=== PATIENT | female | born 2000 | race African-American/Black ===

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

== ENCOUNTER 2018-04-03 17:42 | Emergency (ER) | payer OTHER ==
[~2018-04-03] VITALS: Ht 157.5 cm; Wt 79.4 kg
[~2018-04-03 17:42] MED LIST changes: +CYCL5TAB PO; +HYDR-3164 PO
[2018-04-03 18:11] VITALS: BP 118/65
[2018-04-03 18:17] LABS: BILIRUBIN,URINE NEGATIVE (NEG); CLARITY,URINE CLEAR; COLOR,URINE AMBER; NITRITE,URINE NEGATIVE (NEG); PROTEIN,URINE 30 mg/dL (NEG-TRACE)
[2018-04-03 18:23] LABS: BACTERIA,URINE MODERATE /HPF (0-FEW); RBC,URINE OCC /HPF (0-2); SQUAMOUS EPITHELIAL CELL,UR MANY /LPF; WBC,URINE 20-40 /HPF (0-4)
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
[2018-04-03] MEDS ORDERED: CEPH-264 PO (19:12)
== END 2018-04-03 19:18 | disposition home or self-care (01) ==
LOC: ER 17:42
DX: O99.341 Other mental disorders complicating pregnancy, first trimester (principal); F41.9 Anxiety disorder, unspecified; O23.41 Unspecified infection of urinary tract in pregnancy, first trimester; R10.9 Unspecified abdominal pain; Z3A.12 12 weeks gestation of pregnancy
CPT/HCPCS: 81001; 81025; 87086; 99283

== ENCOUNTER 2018-08-07 13:44 | Observation (INO) | payer OTHER ==
[~2018-08-07 13:44] MED LIST changes: +CEPH-264 PO
[2018-08-07] MEDS ORDERED: IV RINGERS,LACTATED 1000ML 1,000 ML IV SCH (13:55)
[2018-08-07 14:40] LABS: BILIRUBIN,URINE NEGATIVE (NEG); CLARITY,URINE CLEAR; COLOR,URINE YELLOW; NITRITE,URINE NEGATIVE (NEG); PH,URINE 6.5; PROTEIN,URINE NEGATIVE (NEG-TRACE)
[2018-08-07 14:52] LABS: BACTERIA,URINE FEW /HPF (0-FEW); RBC,URINE 0 /HPF (0-2)
[2018-08-07 14:53] LABS: SQUAMOUS EPITHELIAL CELL,UR MANY /LPF
== END 2018-08-07 16:02 | disposition home or self-care (01) ==
LOC: 3 SO LND 13:44
PROVIDERS: ADMIT Specialist; ATTEND Specialist
DX: O26.893 Other specified pregnancy related conditions, third trimester (principal); R10.33 Periumbilical pain; K42.9 Umbilical hernia without obstruction or gangrene; Z3A.30 30 weeks gestation of pregnancy
CPT/HCPCS: 81001; 87086; G0378; G0379

== ENCOUNTER 2018-09-03 14:36 | Emergency (ER) | payer OTHER ==
[~2018-09-03] VITALS: Ht 165.1 cm; Wt 81.6 kg
[2018-09-03 14:43] VITALS: BP 108/55
--- NOTE | 2018-09-03 15:22 | PHYS DOC ---
Past Medical History Past Medical History: No Pertinent History Past Surgical History: No Surgical History Alcohol Use: None Drug Use: None Adult General Chief Complaint Chief Complaint: SORE THROAT HPI HPI Patient is a 18 year old female who presents with complaining of sore throat. Patient is 34 weeks and complaining of sore throat for the last 2 days as a constant pain with nasal congestion without fever and chills, earache, cough and congestion, abdominal pain, vaginal discharge, sick contact. Review of Systems Review of Systems Constitutional: Denies fever or chills [] Eyes: Denies change in visual acuity, redness, or eye pain [] HENT: Denies nasal congestion, reports sore throat [] Respiratory: Denies cough or shortness of breath [] Cardiovascular: No additional information not addressed in HPI [] GI: Denies abdominal pain, nausea, vomiting, bloody stools or diarrhea [] : Denies dysuria or hematuria [] Musculoskeletal: Denies back pain or joint pain [] Integument: Denies rash or skin lesions [] Neurologic: Denies headache, focal weakness or sensory changes [] Endocrine: Denies polyuria or polydipsia [] All other systems were reviewed and found to be within normal limits, except as documented in this note. Allergies Allergies Allergies Coded Allergies Type Severity Reaction Last Updated Verified No Known Drug Allergies 04/07/14 No Physical Exam Physical Exam Constitutional: Well developed, well nourished, no acute distress, non-toxic karo earance. [] HENT: Normocephalic, atraumatic, bilateral external ears normal, oropharynx moist, no oral exudates, nose normal. [] Eyes: PERRLA, EOMI, conjunctiva normal, no discharge. [] Neck: Normal range of motion, no tenderness, supple, no stridor. [] Cardiovascular:Heart rate regular rhythm, no murmur [] Lungs & Thorax: Bilateral breath sounds clear to auscultation [] Abdomen: Bowel sounds normal, soft, no tenderness, no masses, no pulsatile masses, gravid abdomen. [] Skin: Warm, dry, no erythema, no rash. [] Back: No tenderness, no CVA tenderness. [] Extremities: No tenderness, no cyanosis, no clubbing, ROM intact, no edema. [] Neurologic: Alert and oriented X 3, normal motor function, normal sensory function, no focal deficits noted. [] Psychologic: Affect normal, judgement normal, mood normal. [] Current Patient Data Vital Signs Vital Signs Date Time Temp Pulse Resp B/P (MAP) Pulse Ox O2 Delivery O2 Flow Rate FiO2 09/03/18 14:43 98.5 106 16 108/55 (72) 98 Room Air 98.5 EKG EKG [] Radiology/Procedures Radiology/Procedures [] Course & Med Decision Making Course & Med Decision Making Pertinent Labs reviewed. (See chart for details) I've spoken with the patient and/or caregivers. I've explained the patient's condition, diagnosis and treatment plan based on information available to me at this time. I've answered the patient's and/or caregivers questions and addressed any concerns. The patient and/or caregivers have a good understanding the patient's diagnosis, condition and treatment plan as can be expected at this point. Vital signs have been stabilized. The patient's condition is stable for discharge from the emergency department. The patient will pursue further outpatient evaluation with her primary care provider or other designated consulting physician as outlined in the discharge instructions. Patient and/or caregivers are agreeable to this plan of care and follow-up instructions have been explained in detail. The patient and/or caregivers have received these instructions in written format and expressed understanding of these discharge instructions. The patient and her caregivers are aware that if any significant change in condition or worsening of symptoms should prompt him to immediately return to this of the closest emergency department. If an emergent department is not readily available I would encourage him to call 911. Dragon Disclaimer Dragon Disclaimer This electronic medical record was generated, in whole or in part, using a voice recognition dictation system. Departure Departure Impression: Primary Impression: Viral pharyngitis Additional Impression: Currently Disposition: 01 HOME, SELF-CARE Condition: STABLE Referrals: Cindy RAMOS MD (PCP) Patient Instructions: Viral Pharyngitis Additional Instructions: Drink plenty of liquids Follow-up with your primary care physician in 3-5 days Return to ER if not getting better Take [id number] Tylenol as needed for pain Problem Qualifiers Additional Impression: Currently Weeks of gestation: 34 weeks Qualified Codes: Z3A.34 - 34 weeks gestation of GRICELDA VIDAL MD Sep 03, 2018 15:22
== END 2018-09-03 15:41 | disposition home or self-care (01) ==
LOC: ER 14:36
DX: O26.893 Other specified pregnancy related conditions, third trimester (principal); J02.8 Acute pharyngitis due to other specified organisms; B97.89 Other viral agents as the cause of diseases classified elsewhere; Z3A.34 34 weeks gestation of pregnancy
CPT/HCPCS: 87070; 87880; 99283

== ENCOUNTER 2018-11-20 07:14 | Day surgery (SDC) | payer OTHER ==
--- NOTE | 2018-11-20 06:35 | HP ---
ADMIT DATE: HISTORY OF PRESENT ILLNESS: The patient is referred because of symptomatic umbilical hernia. The history is that apparently she had no umbilical hernia until about a year and a half ago or 2 years ago when she got with her first child. She had been delivered and now has delivered about 2 weeks ago another child and has this umbilical hernia which had been painful and tender during the pregnancies. She therefore warrants to have it repaired. She has had normal childhood diseases, has no allergies, and has had no surgery. She has had no real GI symptoms except for the abdominal wall pain at the hernia site. SOCIAL HISTORY: Shows that she does not smoke, drink, or use illicit drugs and never has. FAMILY HISTORY: Noncontributory. REVIEW OF SYSTEMS: Basically negative. Now, as she has delivered, she does have some tenderness at the umbilicus, but it is better. The hernia is present. PHYSICAL EXAMINATION: GENERAL: Shows an alert female, in no acute distress. HEAD, EARS, EYES, NOSE, AND THROAT: Grossly normal. CHEST: Clear bilaterally to auscultation. HEART: Had no murmurs, heaves, friction rubs, or thrills and the rate was 68 beats per minute estimated and regular. BREASTS: Examination of the breast was not done. ABDOMEN: Soft, is by about 2-3 weeks. On inspection, lying down and standing up, she has an obvious umbilical hernia and there appears to be another small defect, maybe just above the umbilicus. This would be a ventral hernia, not an umbilical hernia also. In the abdomen, there was no tenderness, no guarding, no organomegaly, no masses were noted other than the hernia. It was at this point not incarcerated. PELVIC: Examination was not done. IMPRESSION: 1. Anterior abdominal wall hernia. 2. Status by 2 weeks. JORDAN SOUSA MD DR: GRACIELA/zhanna JOB#: [id number] / [id number]
[~2018-11-20 07:14] MED LIST changes: +BUPIVACAINE-EPI 0.5%-1:200000 MPF 30 ML VIAL. INJ ONE; +HYDROmorphone 2 MG/ML VIAL IV PRN; +IV RINGERS,LACTATED 1000ML 1,000 ML IV SCH; +LIDOCAINE 1% PF 2 ML VIAL. ID PRN; +MORPHINE SULFATE 2 MG/ML VIAL. IV PRN; +NAPR-514 PO; +ONDANSETRON PF 4 MG/2 ML VIAL. IV PRN; +PNV1TABL25 PO; +PROCHLORPERAZINE 10 MG/2 ML VIAL. IV PRN; +fentaNYL PF VIAL 100 MCG/2 ML VIAL IV PRN
[2018-11-20 08:07] LABS: BASO # 0.1 x10^3/uL (0.0-0.2); BASO % 1 % (0-3); EOS # 0.1 x10^3/uL (0.0-0.7); EOS % 1 % (0-3); HEMATOCRIT 37.4 % (36.0-47.0); HEMOGLOBIN 12.5 g/dL (12.0-15.5); LYMPH # 3.3 x10^3/uL (1.0-4.8); LYMPH % 36 % (24-48); MEAN CORPUSCULAR HEMOGLOBIN 30 pg (25-35); MEAN CORPUSCULAR HGB CONC 33 g/dL (31-37); MEAN CORPUSCULAR VOLUME 91 fL (79-100); MONO # 0.6 x10^3/uL (0.0-1.1); MONO % 7 % (0-9); NEUT % 55 % (31-73); PLATELET COUNT 203 x10^3/uL (140-400); RED BLOOD COUNT 4.11 x10^6/uL (3.50-5.40); RED CELL DISTRIBUTION WIDTH 14.1 % (11.5-14.5); WHITE BLOOD COUNT 9.1 x10^3/uL (4.0-11.0)
[2018-11-20 08:17] LABS: CALCIUM 9.2 mg/dL (8.5-10.1); CREATININE 0.8 mg/dL (0.6-1.0); GFR 110.7; POTASSIUM 3.8 mmol/L (3.5-5.1)
--- NOTE | 2018-11-20 08:20 | PDOC ---
SURGICAL PROGRESS NOTE Subjective No change in dictated History and Physical. Vital Signs Vital Signs Date Time Temp Pulse Resp B/P (MAP) Pulse Ox O2 Delivery O2 Flow Rate FiO2 11/20/18 07:31 98.0 71 20 111/72 98 Room Air 98.0 Labs Laboratory Tests Test 11/20/18 07:18 Bedside Urine HCG, Qualitative Hcg negative (Negative) Laboratory Tests Test 11/20/18 07:18 Bedside Urine HCG, Qualitative Hcg negative (Negative) JORDAN SUOSA MD Nov 20, 2018 08:20
--- NOTE | 2018-11-20 08:27 | PDOC ---
SURGICAL PROGRESS NOTE Subjective OP NOTE: Surgeon.......................Sousa Pre Op diagnosis..........Ventral hernia Post Op diagnosis........Ventral hernia Anesthesia...................general Procedure....................repair Ventral hernia Drains..........................none Fluids...........................see anesthesia sheet Blood loss.....................10cc Condition.......................satisfactory Vital Signs Vital Signs Date Time Temp Pulse Resp B/P (MAP) Pulse Ox O2 Delivery O2 Flow Rate FiO2 11/20/18 07:31 98.0 71 20 111/72 98 Room Air 98.0 Labs Laboratory Tests Test 11/20/18 07:18 Bedside Urine HCG, Qualitative Hcg negative (Negative) Laboratory Tests Test 11/20/18 07:18 Bedside Urine HCG, Qualitative Hcg negative (Negative) JORDAN SOUSA MD Nov 20, 2018 08:27
[2018-11-20 08:29] LABS: PROTHROMBIN TIME PATIENT 13.4 SEC (11.7-14.0)
[2018-11-20] MEDS ORDERED: PROPOFOL 20 ML IV ONE (08:48)
[2018-11-20] MEDS ORDERED: LIDOCAINE 2% PF 5 ML VIAL. ONE (08:48)
[2018-11-20] MEDS ORDERED: ROCURONIUM 50 MG/5 ML VIAL. ONE (08:49)
[2018-11-20] MEDS ORDERED: ONDANSETRON PF 4 MG/2 ML VIAL. ONE (08:50)
[2018-11-20] MEDS ORDERED: MIDAZOLAM HCL/PF 2 MG/2 ML VIAL. ONE (08:50)
[2018-11-20] MEDS ORDERED: DEXAMETHASONE SOD PHOS 4 MG/ML VIAL ONE (08:50)
[2018-11-20] MEDS ORDERED: fentaNYL PF VIAL 100 MCG/2 ML VIAL ONE ×2 (08:51→09:29)
[2018-11-20] MEDS ORDERED: ceFAZolin SODIUM 1 GM VIAL ONE (09:18)
[2018-11-20] MEDS ORDERED: FAMOTIDINE 20 MG/2 ML VIAL ONE (09:27)
[2018-11-20] MEDS ORDERED: SEVOFLURANE > 120 MINUTES. IH ONE (09:29)
[2018-11-20] MEDS ORDERED: NEOSTIGMINE METHYLSULFATE 5 MG/5 ML SYRINGE. ONE (10:00)
[2018-11-20] MEDS ORDERED: SEVOFLURANE 61 TO 120 MINUTES. IH ONE (10:20)
--- NOTE | 2018-11-20 11:08 | DISCH ---
DISCHARGE INSTRUCTIONS Condition on Discharge Condition on Discharge: Stable Activity After Discharge Activity Instructions for Disc: Activity as tolerated, Avoid exertion, Other, see below Other activity instructions: no strenuous activity Lifting Instructions after Dis: No heavy lifting, No pulling or pushing, Do not lift >10 pounds Exercise Instruction after Dis: Progress as tolerated Driving Instructions after Dis: No driving for 2 weeks Weight Bearing Status after Di: No restrictions Diet after Discharge Diet after Discharge: Clear Liquid, Regular Diet Texture: Regular Liquid Texture: Thin Liquid Swallowing Supervision: None needed Wound Incision Care Wound/Incision Care: Other, see below Other wound/incision instructi: May shower. Leave dressing on as long as possible...then sterile dressing Follow-Up Follow up with: [address] Sousa Treatment/Equipment after DC Adaptive Equipment Issued: None JORDAN SOUSA MD Nov 20, 2018 11:08
[2018-11-20] MEDS ORDERED: HYDR-2765 PO (12:11)
[2018-11-20 12:45] VITALS: BP 113/65
[2018-11-20] MEDS ORDERED: HYDROcodone/APAP 7.5/325MG 1 TAB TABLET PO ONE (12:45)
--- NOTE | 2018-11-21 01:01 | OP ---
DATE OF SURGERY: The patient developed an abdominal wall hernia during her first some years ago. She had another maybe not a year ago, but this past summer or spring and she had a hernia, which is not going away and causing her some difficulties. We discussed the possibility of using mesh. She is planning to be again and therefore she did not want mesh put in and I agree. I also contacted the detail person and he suggested not to put it in if she is going to be again. She did want the hernia fixed and also clearly understood that the hernia may well recur, especially if she gets again. SURGEON: Román Sousa MD. PREOPERATIVE DIAGNOSIS: Umbilical hernia. POSTOPERATIVE DIAGNOSIS: Ventral hernia, as the hernia appeared to be a little bit above the umbilicus. ANESTHESIA: General. PROCEDURE: Repair of abdominal wall hernia, ventral. TECHNIQUE: An incision was made in the supraumbilical area following the skin lines about an inch and half to 2 inches in length. We carried this down through the skin with a 15 blade and then developed a plane in the subcutaneous. We went around the umbilicus caudad and obviously noted that the hole was actually larger and not exactly on the umbilicus. We did separate the umbilicus from the underlying structures and the peritoneum was not entered during this procedure. As such, the fascial ring on the hernia could be seen. We simply used fingers and pushed away the material from the underside of the fascia, so that we could place sutures there safely. We in fact did pull up on either side with towel clips on the fascia and then pass after we were certain that all was away. We put four #1 Prolene sutures there. We buried the notch using 4-0 Vicryl and subcutaneous was irrigated with saline and then the deeper structures were approximated with interrupted 4-0 Vicryl. The skin was closed using the 5-0 subcuticular Vicryl. Sterile Tegaderm dressing was applied and the procedure was terminated. The blood loss was probably 10 mL. Fluids given can be obtained from the anesthesia sheet. There were no drains used. CONDITION OF THE PATIENT: Satisfactory as she has returned to the recovery room. ROMÁN SOUSA MD DR: GRACIELA/zhanna JOB#: [id number] / [id number]
== END 2018-11-20 13:27 | disposition home or self-care (01) ==
LOC: SURG 07:14
PROVIDERS: ATTEND Specialist
DX: K43.9 Ventral hernia without obstruction or gangrene (principal); Z79.01 Long term (current) use of anticoagulants
CPT/HCPCS: 36415; 49560; 80048; 81025; 85025; 85610; A7015; J0690; J1100; J2001; J2250; J2405; J2704; J2710; J3010; J3490

== ENCOUNTER 2020-09-22 18:50 | Emergency (ER) | payer BC, OTHER ==
[~2020-09-22] VITALS: Ht 162.6 cm; Wt 63.0 kg
[~2020-09-22 18:50] MED LIST changes: -BUPIVACAINE-EPI 0.5%-1:200000 MPF 30 ML VIAL. INJ ONE; +HYDR-2765 PO; -HYDROmorphone 2 MG/ML VIAL IV PRN; -IV RINGERS,LACTATED 1000ML 1,000 ML IV SCH; -LIDOCAINE 1% PF 2 ML VIAL. ID PRN; -MORPHINE SULFATE 2 MG/ML VIAL. IV PRN; -ONDANSETRON PF 4 MG/2 ML VIAL. IV PRN; -PROCHLORPERAZINE 10 MG/2 ML VIAL. IV PRN; -fentaNYL PF VIAL 100 MCG/2 ML VIAL IV PRN
--- NOTE | 2020-09-22 22:00 | PHYS DOC ---
Past Medical History Past Medical History: No Pertinent History Past Surgical History: No Surgical History Smoking Status: Never Smoker Alcohol Use: None Drug Use: None General Adult EDM: Chief Complaint: MUSCLE SPASM/CRAMP HPI: HPI: Patient is a 20 year old female with no significant medical history who pre sents to the ED today complaining of mild "contraction" pain to the left chest, symptoms have been going on for 2 to 3 weeks. Patient states symptoms are worse on palpation of her chest. She states symptoms are relieved on certain movements as well as moving her breast on the left side. Denies any fever, coughing, congestion. Denies any fever, denies any chance she is . Denies any family or personal history of cardiac events before the age of 50. Patient is also complaining of mild intermittent posterior neck pain, symptoms of been going on since June 2020. Patient states symptoms are worse on certain movements of the neck. Denies anything specifically relieving the pain. Describes the pain as sharp. Review of Systems: Review of Systems: Constitutional: Denies fever or chills. [] Eyes: Denies change in visual acuity. [] HENT: Denies nasal congestion or sore throat. [] Respiratory: Denies cough or shortness of breath. [] Cardiovascular: Reports left-sided chest pain GI: Denies abdominal pain, nausea, vomiting, bloody stools or diarrhea. [] : Denies dysuria. [] Musculoskeletal: Reports neck pain. Denies back pain Integument: Denies rash. [] Neurologic: Denies headache, focal weakness or sensory changes. [] Psychiatric: Denies depression or anxiety. [] Heart Score: C/O Chest Pain: N/A Risk Factors: Risk Factors: DM, Current or recent (<one month) smoker, HTN, HLP, family history of CAD, obesity. Risk Scores: Score 0 - 3: 2.5% MACE over next 6 weeks - Discharge Home Score 4 - 6: 20.3% MACE over next 6 weeks - Admit for Clinical Observation Score 7 - 10: 72.7% MACE over next 6 weeks - Early Invasive Strategies Current Medications: Current Medications Medications (Trade) Dose Ordered Sig/Shameka Start Time Stop Time Status Last Admin Dose Admin Aspirin (Cami Aspirin) 325 mg 1X ONCE 09/22/20 22:00 09/22/20 22:01 UNV Allergies: Allergies: Allergies Coded Allergies Type Severity Reaction Last Updated Verified No Known Drug Allergies 11/20/18 No Physical Exam: PE: Constitutional: Well developed, well nourished, no acute distress, non-toxic appearance. [] HENT: Normocephalic, atraumatic, bilateral external ears normal, oropharynx moist, no oral exudates, nose normal. [] Eyes: PERRLA, EOMI, conjunctiva normal, no discharge. [] Neck: Normal range of motion, no tenderness, supple, no stridor. [] Cardiovascular: Heart rate regular rhythm, no murmur. Reproducible tenderness to the left chest. Lungs & Thorax: Bilateral breath sounds clear to auscultation [] Abdomen: Bowel sounds normal, soft, no tenderness, no masses, no pulsatile masses. [] Skin: Warm, dry, no erythema, no rash. [] Back: No tenderness, no CVA tenderness. [] Extremities: No tenderness, no cyanosis, no clubbing, ROM intact, no edema. [] Neurologic: Alert and oriented X 3, normal motor function, normal sensory function, no focal deficits noted. [] Psychologic: Affect normal, judgement normal, mood normal. [] EKG: EK Interpreted by Dr. Smith sinus rhythm heart rate 51 no STEMI [] Radiology/Procedures: Radiology/Procedures: []PROCEDURE: CHEST AP ONLY INDICATION: Reason: chest pain / Spl. Instructions: / History: COMPARISON: December 2014 FINDINGS: Single view of chest obtained. No focal airspace consolidation. Cardiomediastinal contour unremarkable. No acute osseous abnormality. IMPRESSION: * No focal airspace consolidation or edema. Electronically signed by: Alna Caban MD (09/22/2020 10:31 PM) [id number] DICTATED and SIGNED BY: ALAN CABAN MD DATE: 09/22/20 [id number] 0 Course & Med Decision Making: Course & Med Decision Making Pertinent Labs and Imaging studies reviewed. (See chart for details) This a 20-year-old female patient presenting to the ED today with left chest pain and tenderness for 2 to 3 weeks. Also complaining of neck pain since June. No known injuries. Negative urine hCG. UA negative for infection. Chest x-ray is negative. PERC score is 0. EKG is negative. Discharge to home. Encouraged follow-up with PCP and retail planning manager. Alexis Disclaimer: Alexis Disclaimer: This electronic medical record was generated, in whole or in part, using a voice recognition dictation system. Departure Departure Impression: Primary Impression: Costochondritis Disposition: HOME / SELF CARE / HOMELESS Condition: STABLE Referrals: Cindy RAMOS MD (PCP) Please follow up next week Patient Instructions: Costochondritis Additional Instructions: You were evaluated in the emergency room for costochondritis and neck pain. Please take the prescribed medications as ordered. Please follow-up with your primary care doctor in 1 week. Scripts Cyclobenzaprine Hcl (CYCLOBENZAPRINE HCL) 10 Mg Tablet 1 TAB PO TID, #30 TAB Prov: MARY JO MCDOWELL APRN 09/22/20 Naproxen (NAPROXEN) 500 Mg Tablet 1 TAB PO BID for pain, #20 TAB 0 Refills Prov: MARY JO MCDOWELL APRN 09/22/20 PERC Rule for PE PERC Rule for PE Response (Comments) Value Age > 50: No 0 HR > 100: No 0 Sa02 on room air <95%: No 0 Unilateral leg swelling: No 0 Hemoptysis: No 0 Recent surgery or trauma: No 0 Prior PE or DVT: No 0 Hormone use: No 0 Total 0 MARY JO MCDOWELL APRN Sep 22, 2020 22:00
[2020-09-22] MEDS ORDERED: ASPIRIN 325 MG TABLET PO ONE (22:30)
[2020-09-22] MEDS ORDERED: CYCLOBENZAPRINE 10 MG TABLET. PO ONE (22:30)
[2020-09-22 22:33] LABS: BILIRUBIN,URINE NEGATIVE (NEG); CLARITY,URINE CLEAR; COLOR,URINE YELLOW; NITRITE,URINE NEGATIVE (NEG); PH,URINE 6.5 (<5.0-8.0); PROTEIN,URINE NEGATIVE (NEG-TRACE)
--- NOTE | 2020-09-22 22:33 | RAD ---
INDICATION: Reason: chest pain / Spl. Instructions: / History: COMPARISON: December 2014 FINDINGS: Single view of chest obtained. No focal airspace consolidation. Cardiomediastinal contour unremarkable. No acute osseous abnormality. IMPRESSION: * No focal airspace consolidation or edema. Electronically signed by: Ramo Peterson MD (09/22/2020 10:31 PM) [id number]
[2020-09-22 22:43] LABS: AMORPHOUS SEDIMENT,UR PRESENT /HPF; BACTERIA,URINE FEW /HPF (0-FEW)
[2020-09-22] MEDS ORDERED: CYCL10TA2 PO (23:08)
[2020-09-22] MEDS ORDERED: NAPR-514 PO (23:08)
[2020-09-23] VITALS: BP 119/69
--- NOTE | 2020-09-23 02:48 | EKG ---
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
== END 2020-09-23 00:54 | disposition home or self-care (01) ==
LOC: ER 18:50
DX: M94.0 Chondrocostal junction syndrome [Tietze] (principal); M54.2 Cervicalgia
CPT/HCPCS: 71045; 81001; 81025; 93005; 99285-25